=== PATIENT | female | born 1995 | race Caucasian/White ===

== ENCOUNTER 2017-10-16 10:11 | Day surgery (SDC) | payer OTHER, MEDICAID ==
[2017-10-16] MEDS ORDERED: MIDAZOLAM 1 MG/ML 2 ML INJ ×3 (12:07)
[2017-10-16] MEDS ORDERED: FENTAnyl 50 MCG/ML VIAL ×2 (12:07)
== END 2017-10-16 14:21 | disposition home or self-care (01) ==
LOC: GIL 10:11
DX: K64.8 Other hemorrhoids (principal); F17.200 Nicotine dependence, unspecified, uncomplicated
CPT/HCPCS: 45378; 84703